=== PATIENT | male | born 1955 | race Caucasian/White ===

== ENCOUNTER 2016-02-27 05:01 | Emergency (ER) | payer MEDICAID, OTHER ==
[~2016-02-27] VITALS: Ht 177.8 cm; Wt 100.0 kg
[~2016-02-27 05:01] MED LIST: BUPR1FIL3 SL
[2016-02-27 05:03] VITALS: BP 154/93; PULSE 89; RESP 18; O2SAT 98
--- NOTE | 2016-02-27 05:21 | ED.REPORT ---
HPI-Rash / Abscess Date of Service Feb 27, 2016 ED Provider: The patient is a 61 year old male who presents to the ED complaining of bleeding from a varicose vein on his right lower extremity. He states he was showering when he bumped his leg and it began bleeding. He denies other known injury, loss of consciousness, or any other symptoms at this time. He is in recovery for heroin abuse (on Suboxone) and has been heroin free for two months (last use 01/08/16). Nursing Notes Stated Complaint: RIGHT LEG BLEEDING Chief Complaint: Laceration Nursing Notes Reviewed: Yes Allergies: Coded Allergies: No Known Allergies (Unverified , 12/20/15) Scheduled Buprenorphine HCl/Naloxone HCl (Suboxone 8 mg-2 mg Sl Film) 1 Each Film 2 EACH SL DAILY General Time Seen by MD: 05:20 Chief Complaint Other (Bleeding from varicose vein) Hx Obtained From: Patient Arrived By: Walk-in Onset Occurred: 16 - 30 minutes ago Symptom Duration: 16 - 30 minutes Quality: Painful Recent Healthcare: No recent doctor visit, No recent hospitalization Similar Sx Previous: No Past Medical History Past Medical History Hx of heroin abuse x 15 years Past Surgical History none reported Family History Noncontributory Smoking History Unknown if Ever Smoker Social History History of heroin use Drug Use: IV drugs Other Social History: Poor social support, Local resident Ambulatory Status Independent Review of Systems Review of Systems Note: Bleeding from varicose vein of right lower extremity Constitutional: Denies: Fever Respiratory: Denies: Shortness of breath GI: Denies: Nausea, Vomiting Complete sys rev & neg: except as marked. Neurologic: Denies: Lightheaded, Numbness, Weakness Physical Exam Initial Vital Signs Vital Signs (First) Date Time Temp Pulse Resp B/P Pulse Ox O2 Delivery O2 Flow Rate FiO2 02/27/16 05:03 35.8 89 18 154/93 98 Initial VS: Reviewed, Vital signs abnormal Head / Eyes: Atraumatic, Normocephalic, PERRL ENT: Mucous membranes moist, Conjunctiva normal, No scleral icterus Neck: Supple, Non-tender, Full range of motion Respiratory: Breath sounds normal, Clear to auscultation, No respiratory distress Cardiovascular: Regular rate & rhythm, Heart sounds normal, Intact distal pulses Abdomen / GI: Soft, Non-tender, No guarding, No rebound, No distention Back: No CVA tenderness Neurologic: Alert, Oriented, Nonfocal General/Constitutional: Awake, Alert, No acute distress Skin: Warm, Dry Rash / Lesion Notes: Total body macular papular rash of uncertain etiology Multiple varicosities to right lower extermity, one of which has a pinhole and was actively bleeding prior to examination. Re-Eval/Medical Decision Med Decision/Clinical Course Eezjqv-ntow-wab male well known to me from [facility] with extensive varicosities. One of these was disrupted and bled considerably. It stops with with pressure. I additionally applied let and a Coban wrap. He also has a diffuse macular papular rash of uncertain etiology. He will follow-up with his primary doctor to get a referral for treatment of these varicosities and further evaluation of his rash. Discharge & Departure Impression: Primary Impression: Bleeding from varicose veins of right lower extremity Disposition: Home Discharge Condition All VS Reviewed: Yes Condition: Stable Patient Instructions: Varicose Veins (ED) Additional Instructions: Leave the compression bandage in place for 2 days, then carefully remove it. Talked to Dr. Lee about the rash and getting a referral to get your varicose veins treated. Compression stockings may help. Referrals: [facility] (PCP) Scribe Attestation Portions of this note were transcribed by Lily Fraser. I, Dr. Burton, personally performed the history, physical exam, and medical decision-making; I reviewed and confirmed the accuracy of the information in the transcribed note. Signed by: Nilson Pelayo, 02/27/16 05:59. Paul Burton MD Feb 27, 2016 05:21 LILY FRASER Feb 27, 2016 05:29
[2016-02-27] MEDS ORDERED: Lidocaine-Epi-Tetracaine Solution 3 mL Syringe TOPICAL ONE (05:30)
[2016-06-14] MEDS ORDERED: AMMO385C5 TP (10:38)
[2016-06-14] MEDS ORDERED: KEN25CR EXT (10:38)
[2016-06-14] MEDS ORDERED: CHOL100045 PO (10:38)
[2016-06-14] MEDS ORDERED: MINO50CA2 PO (10:38)
[2016-06-14] MEDS ORDERED: PRE20 PO (10:38)
[2016-06-14] MEDS ORDERED: IBUP-1827 PO (10:38)
[2016-06-14] MEDS ORDERED: CLOB15CR3 TOP (10:38)
[2016-06-14] MEDS ORDERED: RISP2TAB3 PO (10:38)
== END 2016-02-27 05:57 | disposition home or self-care (01) ==
LOC: SED 05:01
DX: I83.91 Asymptomatic varicose veins of right lower extremity (principal); W22.8XXA Striking against or struck by other objects, initial encounter; Y93.E1 Activity, personal bathing and showering; Y92.9 Unspecified place or not applicable; Y99.8 Other external cause status

== ENCOUNTER 2016-03-31 06:40 | Emergency (ER) | payer OTHER ==
[~2016-03-31] VITALS: Ht 177.8 cm; Wt 97.7 kg
[2016-03-31 06:43] VITALS: BP 168/97; PULSE 90; RESP 18; O2SAT 98
--- NOTE | 2016-03-31 06:43 | ED.REPORT ---
HPI-Extremity Problem Lower Date of Service Mar 31, 2016 ED Provider: Dr. Christianson Pt is a 61 year old male with HTN who presents to the ED with complaints of an actively bleeding varicose vein on his right lower extremity. He reports that he was walking for 2 hours this morning, when he noticed that his leg was bleeding. He reports that he is only taking Suboxone for a prior opiate addiction. Pt states that he is 90 days clean. He is not taking any blood pressure medications, and has no other medication complaints. Nursing Notes Stated Complaint: LEG BLEEDING Chief Complaint: General Complaint Nursing Notes Reviewed: Yes Allergies: Coded Allergies: No Known Allergies (Unverified , 12/20/15) Scheduled Buprenorphine HCl/Naloxone HCl (Suboxone 8 mg-2 mg Sl Film) 1 Each Film 2 EACH SL DAILY General Time Seen by MD: 06:43 Chief Complaint Other (Right lower extremity pain) Onset Occurred: Just prior to arrival Symptom Duration: Since onset Location: : Leg right Quality: Painful Severity: Current: Mild Severity: Maximum: Mild Similar Sx Previous: Yes Past Medical History Past Medical History Hx of heroin abuse x 15 years Reports: Hypertension, Denies: Diabetes mellitus Past Surgical History none reported Family History Noncontributory Smoking History Current Every Day Smoker Social History History of heroin use Alcohol Use: In recovery Drug Use: IV drugs Other Social History: Poor social support, Local resident Ambulatory Status Independent Review of Systems Constitutional: Denies: Chills, Fever, Malaise, Weakness - generalized Musculoskeletal: Reports: Extremity pain, Denies: Back pain Skin: Denies Diaphoresis Neurologic: Denies: Change LOC, Dizziness, Headache, Seizure, Syncope Complete sys rev & neg: except as marked. Physical Exam Initial Vital Signs Vital Signs (First) Date Time Temp Pulse Resp B/P Pulse Ox O2 Delivery O2 Flow Rate FiO2 03/31/16 06:43 36.7 90 18 168/97 98 Room Air Initial VS: Reviewed General/Constitutional: Well-developed, Well-nourished Head / Eyes: Atraumatic, Normocephalic, PERRL ENT: Mucous membranes moist, Conjunctiva normal, No scleral icterus Neck: Supple, Non-tender, Full range of motion Skin: Warm, Dry, No cyanosis Neurologic: Alert, Oriented, Nonfocal Lower Extremity / Pelvis / MS: Atraumatic Actively bleeding varicose vein about the right calf Ankle / Foot: Atraumatic, Inspection NL, Non-tender Procedures Laceration Management Laceration Management: Bleeding varicose vein about the right calf. Hemostasis contained with one figure 8 stitch. Time: 06:48 Procedure Performed by: ED physician Consent / Setup / Site Prep: Consent from patient, Time-out performed, Hand hygiene observed, Stand sterile technique Location of Wound: Right calf Wound Length: 1 cm Local Anesthesia: Lidocaine w epi 1% Wound Preparation: Normal saline Repair Skin: ___ O (3), Nylon # Sutures - Skin: 1 Post-Procedure / Complications: No complications, Condition improved, Tolerated procedure well, Patient stable Re-Eval/Medical Decision Source of Hx: Old records Re-Evaluation/Progress : Time of Eval: 07:24 Re-Evaluation/Progress Note: Pt is rechecked, he is resting comfortably. He is informed of his diagnosis and the plan to discharge him at this time, he understands and agrees. All quesitons are addressed. Counseled Regarding: Diagnosis, Need for follow-up, When/why to return to ED Discharge & Departure Impression: Primary Impression: Bleeding from varicose veins of right lower extremity Disposition: Home Discharge Condition All VS Reviewed: Yes Condition: Stable Patient Instructions: Varicose Veins (ED) Additional Instructions: Talk to Dr. Lee tomorrow about possible more definitive treatment of your varicose veins. That is stitch I placed should come out on Monday. If you have any more bleeding that he cannot control, return to the emergency department. Referrals: [facility] (PCP) Nilson Attestation Portions of this note were transcribed by Valarie King. I, Dr. Christianson personally performed the history, physical exam and medical decision-making; I reviewed and confirmed the accuracy of the information in the transcribed note. Signed by: Nilson Bauer, 03/31/2016 07:15 copies to: [facility] Jens Christianson MD Mar 31, 2016 06:43 LISA KING Mar 31, 2016 07:00
[2016-06-14] MEDS ORDERED: RISP2TAB3 PO (10:38)
[2016-06-14] MEDS ORDERED: KEN25CR EXT (10:38)
[2016-06-14] MEDS ORDERED: PRE20 PO (10:38)
[2016-06-14] MEDS ORDERED: CHOL100045 PO (10:38)
[2016-06-14] MEDS ORDERED: IBUP-1827 PO (10:38)
[2016-06-14] MEDS ORDERED: MINO50CA2 PO (10:38)
[2016-06-14] MEDS ORDERED: CLOB15CR3 TOP (10:38)
[2016-06-14] MEDS ORDERED: AMMO385C5 TP (10:38)
== END 2016-03-31 07:16 | disposition home or self-care (01) ==
LOC: SED 06:40
DX: I83.891 Varicose veins of right lower extremity with other complications (principal); I10 Essential (primary) hypertension; F11.21 Opioid dependence, in remission; F17.200 Nicotine dependence, unspecified, uncomplicated

== ENCOUNTER 2016-08-02 08:18 | Day surgery (SDC) | payer OTHER ==
[~2016-08-02] VITALS: Ht 172.7 cm; Wt 102.1 kg
[~2016-08-02 08:18] MED LIST changes: +AMMO385C5 TP; -BUPR1FIL3 SL; +CHOL100045 PO; +CLOB15CR3 TOP; +IBUP-1827 PO; +KEN25CR EXT; +MINO50CA2 PO; +PRE20 PO; +RISP2TAB3 PO
[2016-08-02] MEDS ORDERED: fentaNYL-PF 50 mCg/mL 2 mL Inj ONE (08:19)
[2016-08-02] MEDS ORDERED: Propofol 10,000 mCg/mL 20 mL Inj ONE (08:19)
[2016-08-02 08:45] VITALS: BP 133/78; PULSE 78; RESP 16; O2SAT 95
[2016-08-02] MEDS ORDERED: Lactated Ringer's 1,000 ML IV ONE (09:03)
[2016-08-02 09:42] VITALS: BP 111/66; PULSE 63; RESP 14; O2SAT 95
--- NOTE | 2016-08-02 09:47 | PCM.HPANE ---
Patient Data Surgeon Admitting Provider: Attending Provider:King Blair MD Primary Care Physician:Shira Lee MD Other Provider:Rivka Traoreingham Anesthesia Reason for Visit Screening Ht/WT & BMI Height (Feet): 5 Height (Inches): 8 Weight (Kilograms): 102.06 Body Mass Index 34.00 Allergies Coded Allergies: No Known Drug Allergies (Verified Allergy, Unknown, 06/14/16) Past Anesthesia History Anesthesia History: Denies:: Abnormal Airway, Anesthesia Reactions, Difficult Intubation, Fam Anesthesia Reaction, Fam Malignant Hypertherm Diabetes History Hx Diabetes?: No MRSA MRSA: No Medications Home Meds Incl Beta Tonja: No Reported Medications Ammonium Lactate 140 Gm Cream..g.140 Gm TP 06/14/16 Minocycline 50 Mg CapsuleUnknown Dose PO BID Ref 0 06/14/16 Clobetasol Propionate/Emoll (Clobetasol Emollient 0.05% Crm)15 Gm Cream..g.1 Appl TOP BID #1 TUBE 06/14/16 Risperidone 2 Mg Tablet2 Mg PO DAILY 30 Days Ref 0 06/14/16 Ibuprofen 600 Mg [id number] Mg PO QID PRN For Pain Ref 0 06/14/16 Triamcinolone Acet (Triamcinolone Acetonide Cream)1 Applic/0.25 Gm Cr1 Applic EXT BID #60 GM Ref 0 06/14/16 Cholecalciferol (Vitamin D3) (Vitamin D)1,000 Unit Capsule1.25 Mg PO DAILY #1 BOTTLE Ref 0 06/14/16 Discontinued Reported Medications Prednisone (PredniSONE)20 Mg [id number] Mg PO DAILY Ref 0 06/14/16 History History of ENT Problems?: No HEENT History: Positive for:: Hearing Problem (MILD VIEJAS) Denies:: Abnormal Airway Difficult Intubation Dysphagia Denture Type: None Teeth Condition: Within Normal Limits Hx of Heart Problems?: Yes Cardiovascular History: Positive for:: Hypertension Denies:: AICD Atrial Fibrillation Chest Pain Congestive Heart Failure Pacemaker Valvular Heart Disease Hx of Respiratory Problem?: Yes Respiratory History: Positive for:: Pneumonia Denies:: Asthma COPD Cough Hemoptysis Tuberculosis Hx Neurologic Problems?: Yes Neurological History: Denies:: CVA Hx of GI Problems?: Yes Hx of Problems?: No Hx Musculoskeletal Problems?: No Musculoskeletal History: Denies:: Fibromyalgia Joint Replacement Psycho Social History: Positive for:: Anxiety Hx Depression Denies:: Suicide Attempt Hx Surgeries?: Yes (R FEMUR REPAIR, R TOE AMPUTATION, L LUNG BX) Hx Any Other Health Problems?: Yes Hx Diabetes: No Hx Alcohol Use: NoHx Substance Use: No Smoking Status: Current Every Day Smoker Have You Smoked inLast 12 mo: Yes Stop/Bang Treated for Sleep Apnea?: No Do You Have a CPAP Machine?: No S-Snoring: Do You Snore Loudly: No T-Tired: feel tired, fatigued: No O-Obsered: Observed not breath: No P-Blood Pressure: treated: Yes B- Body Mass Index > 35 kg/m2: Yes A- Age over 50: Yes N- Neck Large Circumference: No G- Gender Male: Yes GENARO Total Score: 4 Risk Assessment Category Category 1A: Patient has history of documented sleep apnea, and HAS NOT received any narcotic, sedative or anesthesia administration during this stay. Category 1B: Patient has history of documented sleep apnea, and HAS received any narcotic , sedative or anesthesia administration during this stay Category 2: Patient has SUSPECTED Obstructive Sleep Apnea, and HAS received any narcotic , sedative or anesthesia administration during this stay. Category 3: Patient has SUSPECTED Obstructive Sleep Apnea and HAS NOT received narcotic, sedative or anesthesia administration during this stay. Category 4: Outpatient in Procedural Areas with known sleep apnea or who screen positive for High Risk via the STOP/BANG questionnaire. Exam Exam Vital Signs Vital Signs Date Time Temp Pulse Resp B/P Pulse Ox O2 Delivery O2 Flow Rate FiO2 08/02/16 08:45 36.5 78 16 133/78 95 Room Air General Appearance: Alert, Oriented X3, Cooperative, No Acute Distress HEENT/AIRWAY: MP 2 Lungs: Clear to Auscultation Heart: Exam Unremarkable Plan Impression Patient chart reviewed, patient interviewed and anesthestic plan with risks, benefits, and alternatives discussed, and informed consent obtained. ASA Physical Status: ASA3 Severe Disease Anesthetic Plan: MAC Bene/Risks/Altern/Consents: Yes HP Complete Prior to Induction: Yes Gama Moctezuma MD Aug 02, 2016 09:04
[2016-08-02 09:52] VITALS: BP 103/63; PULSE 64; RESP 16; O2SAT 96
--- NOTE | 2016-08-02 09:56 | ENDO ---
[address] [address] ENDOSCOPY PROCEDURE PATIENT: ISRRAEL CLINTON V : 1955 MR#: [id number] ADMIT: 08/02/2016 JOB ID: [id number] DATE: 08/02/2016 TYPE OF OPERATION: Colonoscopy. PREOPERATIVE DIAGNOSIS(ES): Colorectal cancer screening. POSTOPERATIVE DIAGNOSIS(ES): Mild sigmoid diverticulosis. ANESTHESIA: Monitored anesthesia care. COMPLICATIONS: None. BLOOD LOSS: Minimal. DESCRIPTION OF PROCEDURE: After risks and benefits were explained to the patient, informed consent was obtained. After anesthesia administered, colonoscope was inserted from rectum to the cecum. Mucosa carefully examined. Prep of the patient was fair. After the procedure was done, the scope withdrawn and procedure terminated. FINDINGS: Upon inspection of the anus, no masses, hemorrhoids, ulcers or fissures that were seen. Throughout the entire examination, there were no polyps, masses or lesions. There was mild sigmoid diverticulosis. There was also quite a bit of fluid that was seen during the colonoscopy which was suctioned. Retroflexion was normal. IMPRESSIONS: Moderate sigmoid diverticulosis. RECOMMENDATIONS: Repeat colonoscopy in 10 years for colorectal cancer screening along with a two day prep. [facility]
== END 2016-08-02 23:59 | disposition home or self-care (01) ==
LOC: END 08:18
PROVIDERS: ATTEND Internal Medicine Gastroenterology
DX: Z12.11 Encounter for screening for malignant neoplasm of colon (principal); K57.30 Diverticulosis of large intestine without perforation or abscess without bleeding; I10 Essential (primary) hypertension; F31.9 Bipolar disorder, unspecified; E66.9 Obesity, unspecified; E78.5 Hyperlipidemia, unspecified; F17.210 Nicotine dependence, cigarettes, uncomplicated; Z87.898 Personal history of other specified conditions; Z68.34 Body mass index [BMI] 34.0-34.9, adult
CPT/HCPCS: G0121; J3010; J7120

== ENCOUNTER 2016-11-07 02:00 | Emergency (ER) | payer OTHER ==
[~2016-11-07] VITALS: Ht 172.7 cm; Wt 95.0 kg
[~2016-11-07 02:00] MED LIST changes: -PRE20 PO
[2016-11-07 02:08] VITALS: BP 156/92; PULSE 69; RESP 20; O2SAT 95
--- NOTE | 2016-11-07 02:16 | ED.REPORT ---
HPI-Dental/Mouth Prob Date of Service Nov 07, 2016 ED Provider: Paul Burton MD The pt is a 61 y/o male w/ a hx of HTN and heroin abuse presenting to the ED complaining of L upper gum pain. The pt is still taking Suboxone currently. He is planning on seeing a dentist last today but is unable to sleep due to the pain. Nursing Notes Stated Complaint: DENTAL PAIN Chief Complaint: L upper gum pain Nursing Notes Reviewed: Yes Allergies: Coded Allergies: No Known Drug Allergies (Verified Allergy, Unknown, 06/14/16) Scheduled Cholecalciferol (Vitamin D3) (Vitamin D) 1,000 Unit Capsule 1.25 MG PO DAILY Clobetasol Propionate/Emoll (Clobetasol Emollient 0.05% Crm) 15 Gm Cream..g. 1 APPL TOP BID Minocycline (Minocycline) 50 Mg Capsule Unknown Dose PO BID Risperidone (Risperidone) 2 Mg Tablet 2 MG PO DAILY Triamcinolone Acet (Triamcinolone Acetonide Cream) 1 Applic/0.25 Gm Cr 1 APPLIC EXT BID Scheduled PRN Ibuprofen (Ibuprofen) 600 Mg Tablet 600 MG PO QID PRN PRN For Pain Miscellaneous Medications Ammonium Lactate (Ammonium Lactate) 140 Gm Cream..g. 140 GM TP General Time Seen by MD: 02:15 Chief Complaint Other (L upper gum pain ) Hx Obtained From: Patient Recent Healthcare: No recent hospitalization, Recent doctor visit Similar Sx Previous: No Past Medical History Past Medical History Hx of heroin abuse x 15 years Reports: Hypertension Past Surgical History none reported Family History Noncontributory Smoking History Current Every Day Smoker Social History History of heroin use Alcohol Use: In recovery Drug Use: IV drugs Other Social History: Poor social support, Local resident Ambulatory Status Independent Review of Systems L upper gum pain; Complete sys rev & neg: except as marked. Physical Exam Initial Vital Signs Vital Signs (First) Date Time Temp Pulse Resp B/P Pulse Ox O2 Delivery O2 Flow Rate FiO2 11/07/16 02:08 37.3 69 20 156/92 95 Room Air Initial VS: Reviewed, Vital signs abnormal General/Constitutional: Well-developed, Well-nourished Head / Eyes: Atraumatic, Normocephalic, PERRL Respiratory: Breath sounds normal, Clear to auscultation, No respiratory distress Cardiovascular: Regular rate & rhythm, Heart sounds normal, Intact distal pulses Extremities: Vascular intact, Neuro intact, No swelling, No tenderness Skin: Warm, Dry, No cyanosis Neurologic: Alert, Oriented, Nonfocal Psychiatric: Mood/affect normal, Behavior normal, Normal thought content ENT: Airway patent Gum inflammation associated w/ teeth number 5 and 6 Teeth themselves appear normal Neck: Atraumatic, Supple, Full range of motion Re-Eval/Medical Decision Med Decision/Clinical Course 61-year-old male with a history of opioid dependence now on Suboxone. He has some increasing abdominal pain along the buccal aspect of his left upper molars. This area was anesthetized with bupivacaine. He was given a prepack of doxycycline. He will follow-up at [facility] dental clinic. Source of Hx: Old records Re-Evaluation/Progress : Time of Eval: 02:22 Re-Evaluation/Progress Note: Infiltrated the gum w/ bupivacaine. F/U instructions and RTER warnings given. All questions addressed. Counseled Regarding: Diagnosis, Need for follow-up, When/why to return to ED Discharge & Departure Primary Impression: Toothache Additional Impression: Gingivitis Disposition: Home Discharge Condition All VS Reviewed: Yes Condition: Stable Patient Instructions: Gingivitis (ED) Additional Instructions: You have inflammation of the gum, possibly gingivitis. Doxycycline 100 mg by mouth twice a day, #20 dispensed. You were given an injection of bupivacaine, a long-acting anesthetic, in the painful gums. You were given an injection of Toradol, a strong anti-inflammatory pain medication, non-narcotic. These should last 4-6 hours at least get some sleep. Follow up later today with [facility]. Referrals: Shira Lee MD (PCP) Scribe Attestation Portions of this note were transcribed by Ezio Morton. I, Dr. Burton personally performed the history, physical exam and medical decision-making; I reviewed and confirmed the accuracy of the information in the transcribed note. copies to: Shira Lee MD, Paul Lee MD Nov 07, 2016 02:16 Ezio Morton Nov 07, 2016 02:24
[2016-11-07 02:51] VITALS: BP 146/88; PULSE 68; RESP 18; O2SAT 96
[2016-11-07] MEDS ORDERED: _Doxycycline 100 mg Tablet PO SCH (08:30)
== END 2016-11-07 02:52 | disposition home or self-care (01) ==
LOC: SED 02:00
DX: K08.89 Other specified disorders of teeth and supporting structures (principal); K05.10 Chronic gingivitis, plaque induced; F11.10 Opioid abuse, uncomplicated; I10 Essential (primary) hypertension; F17.200 Nicotine dependence, unspecified, uncomplicated
CPT/HCPCS: 96372; 99283; J1885